=== PATIENT | female | born 2000 | race Caucasian/White ===

== ENCOUNTER 2025-02-19 07:35 | Emergency (ER) | payer OTHER, SELFPAY ==
[2025-02-19 07:50] VITALS: BP 151/83; PULSE 94; RESP 16; TEMP 36.5; O2SAT 100
--- NOTE | 2025-02-19 08:22 | ED_ITS ---
HPI - Dental/Oral General Chief complaint: Dental/Oral Stated complaint: face pain Time Seen by Provider: 02/19/25 07:58 Source: patient Mode of arrival: ambulatory Limitations: no limitations History of Present Illness HPI Narrative: Patient is a 24-year-old female with significant past medical history that presents today for tooth pain. She has pain in left side cheek/tooth. Pain related to this coming from the tooth 17. Back bottom left molar. There is a small chip off of this to. She says it is a little bit sensitive Nathen's well. I did discuss with her she does need to go to the dentist but there probably is a small infection. MD Complaint: tooth pain and tooth injury Teeth map: 2 1. Onset (ago): day(s) Duration: intermittent Severity: mild Severity scale (1-10): 4 Relieving factors: NSAIDs Exacerbating factors: chewing and cold Associated symptoms: gum swelling Related Data Allergies Allergy/AdvReac Type Severity Reaction Status Date / Time No Known Allergies Allergy Verified 02/19/25 08:32 Review of Systems 2 Review of Systems: All systems reviewed & are unremarkable except as noted in HPI and below Constitutional: Constitutional: Reports as per HPI Eyes: Eyes: Reports no additional eye complaints ENT: Reports as per HPI Cardiovascular: Cardiovascular: Reports no additional cardiovascular complaints Respiratory: Respiratory: Reports no additional respiratory complaints Gastrointestinal: Gastrointestinal: Reports no additional gastrointestinal complaints Genitourinary: Genitourinary: Reports no additional female genitourinary complaints Musculoskeletal: Musculoskeletal: Reports no additional musculoskeletal complaints Integumentary/Breasts: Skin/Breast: Reports system reviewed and no additional complaints, except as docu Neurologic: Reports system reviewed and no additional complaints, except as documented Psychiatric: Psychiatric: Reports no additional psychiatric complaints Endocrine: Endocrine: Reports no additional endocrine complaints Hematologic/Lymphatic: Hematologic/Lymphatic: Reports no additional hematologic/lymphatic complaints Allergic/Immunologic: Allergic/Immunologic: Reports no additional allergic/immunologic complaints Exam 2 Const: General: healthy appearing Nutritional Appearance: well nourished Orientation/consciousness: patient oriented x3 Limitations: no limitations HENMT: Head: normal to inspection Ears: external ears normal F gabrielle/Nose/Sinus: Normal external nose present Face and sinus: normal facial exam Mouth: Yes Normal oral and palatal mucosa present Teeth and gingiva: abnormal tooth and associated gingiva Throat: posterior oropharynx normal Eyes: Conjunctivae: conjunctivae normal Pupils: Equal, round and reactive pupils present EOM: EOMs intact bilaterally Direct Ophthalmoscopy: no photophobia Neck: Neck: normal visual inspection Chest: Chest palpation & inspection: normal inspection of the chest Resp: Effort & Inspection: normal respiratory effort Auscultation: clear to auscultation bilaterally Cardio: Rate: regular rate Rhythm: regular rhythm Heart sounds: Murmur heart sound present GI: GI Palp: Yes Soft to palpation Back/Spine/Pelvis: Back: no CVA tenderness Skin: General skin exam: normal color Rashes: no rashes Wounds: no wounds Neuro: General: patient oriented x3 Cranial nerves: Yes Nystagmus not present Speech: normal speech Gait exam (Neuro): Normal gait present Extrem: General: normal to inspection Psych: Mental Status: mental status grossly normal Affect: normal affect Attitude: cooperative Course Vital Signs Vital signs: Vital Signs Temperature 97.7 F 02/19/25 07:50 Pulse Rate 94 02/19/25 07:50 Respiratory Rate 16 02/19/25 07:50 Blood Pressure 151/83 H 02/19/25 07:50 Pulse Oximetry 100 02/19/25 07:50 Oxygen Delivery Room Air 02/19/25 07:50 Temperature 97.7 F 02/19/25 07:50 Pulse Rate 94 02/19/25 07:50 Respiratory Rate 16 02/19/25 07:50 Blood Pressure 151/83 H 02/19/25 07:50 Pulse Oximetry 100 02/19/25 07:50 Oxygen Delivery Room Air 02/19/25 07:50 MDM - Dental/Oral MDM Narrative Medical decision making narrative: Patient most likely has a dental infection on the high back bottom left molar. Will start her on clindamycin for this and give her shot of Toradol for the pain. And then send the rest of the clindamycin and her pharmacy for a 10 day course. Differential Diagnosis Differential diagnosis: Likely toothache Medical Records Attestation: I reviewed the patient's medical records. Lab Data Attestation: I reviewed the patient's lab results. Discharge Plan Discharge Clinical Impression: Toothache, Infected tooth Patient Disposition: Home Condition: Stable Instructions: Toothache (ED) Patient Language: Kazakh Prescriptions: New clindamycin HCl [Cleocin HCl] 300 mg capsule 300 mg PO TID Qty: 30 0RF Follow-up/Referrals: Reid Torre MD [Primary Care Provider] - Stand Alone Forms: Work/School Release IP Time of Disposition: 08:33
[2025-02-19] MEDS: KETOROLAC (*BKC) 60 MG/2 ML VIAL IM (08:26)
[2025-02-19] MEDS: CLINDAMYCIN HCL 150 MG CAP 300 MG PO (08:26)
== END 2025-02-19 08:43 | disposition home or self-care (01) ==
PROVIDERS: Emergency Provider Family Medicine; PCP Family Medicine
DX: K04.7 Periapical abscess without sinus (principal); K08.89 Other specified disorders of teeth and supporting structures
CPT/HCPCS: 96372; 99283; J1885